=== PATIENT | female | born 1940 | race Native Hawaiian/Other Pacific Islander ===

== ENCOUNTER 2016-04-11 15:34 | Outpatient (CLI) | payer OTHER ==
[~2016-04-11 15:34] MED LIST: ACET7.5T70 PO; ALLEGRA ALRG180 M1 PO; AMLO10TA PO; ATEN50TA36 PO; BENA20TA2 PO; CIPR500T PO; ESTR0.9T PO; EZET10TA13 OR; GLIP2.5T3 PO; HYDR25TA60 PO; HYDRALAZINE25 MG PO; METF500T PO; NORGEST/ETH1 OR; PACERONE200 MG PO; POTASSIUM CHLO20 MEQ OR; SIMV40TA57; SIMV40TA57 PO; SITA50TA2 PO; XARELTO20 MG PO
== END 2016-04-11 19:11 | disposition home or self-care (01) ==
LOC: RESP 15:34
DX: R20.2 Paresthesia of skin (principal)
CPT/HCPCS: 95909

== ENCOUNTER 2016-06-14 11:33 | Emergency (ER) | payer OTHER ==
[~2016-06-14] VITALS: Ht 165.1 cm; Wt 73.5 kg
[2016-06-14 11:55] VITALS: TEMP 98.2
[2016-06-14 12:44] LABS: PLATELET COUNT 189 K/uL (152-353)
[2016-06-14 13:00] LABS: POTASSIUM 3.9 mmol/L (3.6-5.2)
[2016-06-14 14:25] VITALS: BP 162/72
== END 2016-06-14 14:25 | disposition home or self-care (01) ==
LOC: ED 11:33
DX: I10 Essential (primary) hypertension (principal); E11.9 Type 2 diabetes mellitus without complications
CPT/HCPCS: 36415; 80053; 81000; 83036; 85027; 99283

== ENCOUNTER 2016-06-21 14:45 | Outpatient (CLI) | payer OTHER ==
[2016-06-21 15:34] LABS: PLATELET COUNT 177 K/uL (152-353)
[2016-06-21 16:38] LABS: POTASSIUM 3.9 mmol/L (3.6-5.2)
== END 2016-06-21 19:11 | disposition home or self-care (01) ==
LOC: LAB 14:45
PROVIDERS: Nurse Practitioner Family
DX: I10 Essential (primary) hypertension (principal); E11.9 Type 2 diabetes mellitus without complications; E78.4 Other hyperlipidemia; I25.10 Atherosclerotic heart disease of native coronary artery without angina pectoris; I42.8 Other cardiomyopathies; Z79.899 Other long term (current) drug therapy; Z79.01 Long term (current) use of anticoagulants; Z51.81 Encounter for therapeutic drug level monitoring; I48.91 Unspecified atrial fibrillation; R79.89 Other specified abnormal findings of blood chemistry
CPT/HCPCS: 80053; 80061; 83036; 83880; 84439; 84443; 85027

== ENCOUNTER 2016-07-08 17:51 | Emergency (ER) | payer OTHER ==
[~2016-07-08] VITALS: Ht 165.1 cm; Wt 74.4 kg
[2016-07-08 18:00] VITALS: TEMP 97.8
[2016-07-08] MEDS ORDERED: ASPIRIN81 M2 OR (18:07)
[2016-07-08] MEDS ORDERED: GABA300C2 PO (18:08)
[2016-07-08] MEDS ORDERED: CLON0.1T16 PO (18:09)
[2016-07-08 18:32] VITALS: BP 139/70
== END 2016-07-08 18:38 | disposition home or self-care (01) ==
LOC: ED 17:51
DX: I10 Essential (primary) hypertension (principal); F41.8 Other specified anxiety disorders
CPT/HCPCS: 99281

== ENCOUNTER 2016-10-18 10:45 | Outpatient (CLI) | payer OTHER ==
[~2016-10-18 10:45] MED LIST changes: +ASPIRIN81 M2 OR; +CLON0.1T16 PO; +GABA300C2 PO
== END 2016-10-18 12:00 | disposition home or self-care (01) ==
LOC: MAMMO 10:45
DX: Z12.31 Encounter for screening mammogram for malignant neoplasm of breast (principal)
CPT/HCPCS: G0202-TC

== ENCOUNTER 2017-03-12 13:33 | Outpatient (CLI) | payer OTHER ==
[2017-03-12 13:59] LABS: PLATELET COUNT 242 K/uL (152-353)
[2017-03-12 14:17] LABS: POTASSIUM 3.3 mmol/L (3.6-5.2)
== END 2017-03-12 19:03 | disposition home or self-care (01) ==
LOC: LAB 13:33
PROVIDERS: Nurse Practitioner Family
DX: I10 Essential (primary) hypertension (principal); E11.9 Type 2 diabetes mellitus without complications; E78.4 Other hyperlipidemia; I25.10 Atherosclerotic heart disease of native coronary artery without angina pectoris; Z79.899 Other long term (current) drug therapy; Z51.81 Encounter for therapeutic drug level monitoring; I48.91 Unspecified atrial fibrillation
CPT/HCPCS: 80053; 80061; 83036; 84436; 84443; 85027

== ENCOUNTER 2017-04-25 08:14 | Emergency (ER) | payer OTHER ==
[~2017-04-25] VITALS: Ht 165.1 cm; Wt 71.2 kg
[2017-04-25 08:25] VITALS: TEMP 98.3
[2017-04-25 09:35] LABS: PLATELET COUNT 191 K/uL (152-353)
[2017-04-25 09:55] LABS: POTASSIUM 3.3 mmol/L (3.6-5.2); SODIUM 136 mmol/L (136-145)
[2017-04-25 11:05] VITALS: BP 137/66
== END 2017-04-25 11:05 | disposition home or self-care (01) ==
LOC: ED 08:14
PROVIDERS: Family Medicine
DX: I16.0 Hypertensive urgency (principal); E11.65 Type 2 diabetes mellitus with hyperglycemia; E87.6 Hypokalemia; R00.1 Bradycardia, unspecified; I45.81 Long QT syndrome
CPT/HCPCS: 36415; 80053; 84484; 85027; 93005; 99283

== ENCOUNTER 2017-08-29 07:18 | Outpatient (CLI) | payer OTHER ==
[2017-08-29 07:43] LABS: POTASSIUM 3.5 mmol/L (3.6-5.2)
== END 2017-08-29 23:08 | disposition home or self-care (01) ==
LOC: LABW 07:18
PROVIDERS: Internal Medicine Cardiovascular Disease
DX: R06.09 Other forms of dyspnea (principal)
CPT/HCPCS: 36415; 80048; 83880

== ENCOUNTER 2017-09-03 14:06 | Outpatient (CLI) | payer OTHER ==
[~2017-09-03 14:06] MED LIST changes: -ASPIRIN81 M2 OR; +ASPIRIN81 M2 PO
== END 2017-09-03 14:10 | disposition short-term general hospital (02) ==
LOC: AMB 14:06
DX: R51 Headache (principal)
CPT/HCPCS: A0425; A0429

== ENCOUNTER 2017-09-03 14:27 | Emergency (ER) | payer OTHER ==
[~2017-09-03] VITALS: Ht 152.4 cm; Wt 71.2 kg
[~2017-09-03 14:27] MED LIST changes: +ASPIRIN81 M2 OR; -ASPIRIN81 M2 PO
[2017-09-03 17:37] VITALS: BP 161/64; TEMP 98
== END 2017-09-03 17:40 | disposition home or self-care (01) ==
LOC: ED 14:27
DX: S00.83XA Contusion of other part of head, initial encounter (principal); W18.39XA Other fall on same level, initial encounter; Y93.89 Activity, other specified; Y92.89 Other specified places as the place of occurrence of the external cause; Y99.8 Other external cause status; S60.512A Abrasion of left hand, initial encounter; S60.511A Abrasion of right hand, initial encounter; R51 Headache
CPT/HCPCS: 99283

== ENCOUNTER 2017-09-06 17:15 | Outpatient (CLI) | payer OTHER ==
[~2017-09-06 17:15] MED LIST changes: -ASPIRIN81 M2 OR; +ASPIRIN81 M2 PO
[2017-09-06] MEDS ORDERED: HYDROCHLOROT50 MG PO (17:51)
[2017-09-06] MEDS ORDERED: LIPITOR10 MG PO (17:52)
[2017-09-06] MEDS ORDERED: ALAVERT10 M2 PO (18:01)
[2017-09-06] MEDS ORDERED: MONTELUKAST SOD10 MG PO (18:02)
[2017-09-06] MEDS ORDERED: MECLIZINE25 MG PO (18:03)
[2017-09-06] MEDS ORDERED: LORA0.5T17 PO (18:05)
[2017-09-06] MEDS ORDERED: JANUVIA100 MG PO (18:07)
[2017-09-06] MEDS ORDERED: EZET10TA13 PO (22:28)
== END 2017-09-06 17:19 | disposition short-term general hospital (02) ==
LOC: AMB 17:15
DX: M25.561 Pain in right knee (principal); R26.2 Difficulty in walking, not elsewhere classified; M62.81 Muscle weakness (generalized)
CPT/HCPCS: A0425; A0427

== ENCOUNTER 2017-09-06 17:20 | Inpatient (IN) | payer OTHER ==
[~2017-09-06] VITALS: Ht 162.6 cm; Wt 70.0 kg
[2017-09-06 17:23] VITALS: BP 150/51; TEMP 98.1
[2017-09-06] MEDS ORDERED: HYDROCHLOROT50 MG PO (17:51)
[2017-09-06] MEDS ORDERED: LIPITOR10 MG PO (17:52)
[2017-09-06 17:59] LABS: PLATELET COUNT 103 K/uL (152-353)
[2017-09-06] MEDS ORDERED: ALAVERT10 M2 PO (18:01)
[2017-09-06] MEDS ORDERED: MONTELUKAST SOD10 MG PO (18:02)
[2017-09-06] MEDS ORDERED: MECLIZINE25 MG PO (18:03)
[2017-09-06] MEDS ORDERED: LORA0.5T17 PO (18:05)
[2017-09-06] MEDS ORDERED: JANUVIA100 MG PO (18:07)
[2017-09-06 18:40] LABS: POTASSIUM 3.4 mmol/L (3.6-5.2)
[2017-09-06] MEDS ORDERED: EZET10TA13 PO (22:28)
[2017-09-06 23:17] VITALS: BP 145/90; TEMP 97.5; Ht 162.6 cm; Wt 70.0 kg
[2017-09-07] VITALS: BP 138/56; TEMP 97.9
[2017-09-07 04:00] VITALS: BP 136/45; TEMP 98.6
[2017-09-07 08:00] VITALS: BP 148/56; TEMP 98.2
[2017-09-07 12:00] VITALS: BP 131/58; TEMP 98.6
[2017-09-07 16:00] VITALS: BP 149/55; TEMP 98.5
[2017-09-07 20:00] VITALS: BP 152/65; TEMP 99
[2017-09-08] VITALS (7 sets, daily range): BP systolic 161–198; BP diastolic 61–86; TEMP 98.2–98.8
[2017-09-08 05:38] LABS: PLATELET COUNT 194 K/uL (152-353)
[2017-09-08 05:53] LABS: POTASSIUM 3.2 mmol/L (3.6-5.2)
[2017-09-09 04:00] VITALS: BP 172/80; TEMP 98.3
[2017-09-09 08:00] VITALS: BP 176/90; TEMP 99
[2017-09-09 08:17] LABS: PLATELET COUNT 235 K/uL (152-353)
[2017-09-09 08:49] LABS: POTASSIUM 3.3 mmol/L (3.6-5.2)
[2017-09-09 12:00] VITALS: BP 174/84; TEMP 99
== END 2017-09-09 14:00 | disposition home or self-care (01) | DRG 605 ==
LOC: ED 17:20 → MED/SURG 20:00
PROVIDERS: Emergency Medicine
DX: S00.83XA Contusion of other part of head, initial encounter (principal); E87.1 Hypo-osmolality and hyponatremia; W19.XXXA Unspecified fall, initial encounter; Z91.81 History of falling; Y93.89 Activity, other specified; Y92.89 Other specified places as the place of occurrence of the external cause; I48.91 Unspecified atrial fibrillation; I10 Essential (primary) hypertension; R00.1 Bradycardia, unspecified; S05.12XA Contusion of eyeball and orbital tissues, left eye, initial encounter; M25.552 Pain in left hip; M25.561 Pain in right knee
CPT/HCPCS: 36415; 51702; 80053; 81000; 82948; 84484; 85027; 93005; 96365; 96366; 96372; 96375; 99283; J1650; J1885; J3411; J3490

== ENCOUNTER 2017-11-04 13:30 | Outpatient (CLI) | payer OTHER ==
[~2017-11-04 13:30] MED LIST changes: +ALAVERT10 M2 PO; +EZET10TA13 PO; +HYDROCHLOROT50 MG PO; +JANUVIA100 MG PO; +LIPITOR10 MG PO; +LORA0.5T17 PO; +MECLIZINE25 MG PO; +MONTELUKAST SOD10 MG PO
== END 2017-11-04 22:07 | disposition home or self-care (01) ==
LOC: MAMMO 13:30
DX: Z12.31 Encounter for screening mammogram for malignant neoplasm of breast (principal)

== ENCOUNTER 2018-06-15 08:39 | Outpatient (CLI) | payer OTHER | END 2018-06-15 23:26 | disposition home or self-care (01) | LOC: CT 08:39 | DX: S00.83XS Contusion of other part of head, sequela (principal); R51 Headache ==

== ENCOUNTER 2018-10-23 09:42 | Emergency (ER) | payer OTHER ==
[~2018-10-23] VITALS: Ht 165.1 cm; Wt 68.5 kg
[2018-10-23 10:01] VITALS: TEMP 98.1
[2018-10-23 11:03] LABS: PLATELET COUNT 191 K/uL (152-353)
[2018-10-23 11:12] LABS: POTASSIUM 3.5 mmol/L (3.6-5.2)
[2018-10-23 14:13] VITALS: BP 116/82
== END 2018-10-23 14:13 | disposition home or self-care (01) ==
LOC: ED 09:42
PROVIDERS: Family Medicine
DX: M51.36 Other intervertebral disc degeneration, lumbar region (principal); D72.828 Other elevated white blood cell count
CPT/HCPCS: 80053; 81000; 85027; 99283

== ENCOUNTER 2018-11-04 16:59 | Observation (INO) | payer OTHER ==
[~2018-11-04] VITALS: Ht 165.1 cm; Wt 69.1 kg
[2018-11-04] VITALS (9 sets, daily range): BP systolic 115–172; BP diastolic 52–82; TEMP 97.7–98.6; Ht 165.1 cm; Wt 69.1 kg
[2018-11-04 17:32] LABS: PLATELET COUNT 356 K/uL (152-353)
[2018-11-04 17:43] LABS: POTASSIUM 3.6 mmol/L (3.6-5.2); SODIUM 135 mmol/L (136-145)
--- NOTE | 2018-11-04 23:41 | NUR ---
11/04/18 2222: RECEIVED PT FROM ER BY WHEELCHAIR TO ROOM 1108. PT ALERT, ORIENTED X4 DENIES PAIN AT THIS TIME. NO VOMITING NOTED AT THIS TIME. PT REQUESTING SOMETHING TO EAT. STATED SHE HADN'T EATEN ALL DAY. ORIENTED TO THE ENVIRONMENT.
[2018-11-05 03:56] VITALS: BP 173/63; TEMP 98.2
[2018-11-05 08:00] VITALS: BP 186/80; TEMP 98.6
[2018-11-05 08:14] LABS: PLATELET COUNT 297 K/uL (152-353)
== END 2018-11-05 10:05 | disposition home or self-care (01) ==
LOC: ED 16:59 → MED/SURG 20:35
PROVIDERS: Family Medicine; ADMIT Emergency Medicine
DX: A08.39 Other viral enteritis (principal); R11.2 Nausea with vomiting, unspecified; D72.828 Other elevated white blood cell count; R10.84 Generalized abdominal pain; E86.0 Dehydration; I48.91 Unspecified atrial fibrillation; I10 Essential (primary) hypertension; E11.9 Type 2 diabetes mellitus without complications
CPT/HCPCS: 80053; 81000; 82550; 82553; 83605; 84443; 84484; 85027; 93005; 96374; 99220; 99284; G0378; J0696; J2550; Q9963

== ENCOUNTER 2018-11-24 12:49 | Outpatient (CLI) | payer OTHER | END 2018-11-24 20:18 | disposition home or self-care (01) | LOC: MRI 12:49 | DX: M54.16 Radiculopathy, lumbar region (principal) ==

== ENCOUNTER 2018-12-11 12:35 | Outpatient (CLI) | payer OTHER | END 2018-12-11 22:26 | disposition home or self-care (01) | LOC: MAMMO 12:35 | DX: Z12.31 Encounter for screening mammogram for malignant neoplasm of breast (principal) ==

== ENCOUNTER 2019-04-22 08:20 | Outpatient (CLI) | payer OTHER | END 2019-04-22 19:39 | disposition home or self-care (01) | LOC: LABW 08:20 | DX: R06.09 Other forms of dyspnea (principal); Z79.899 Other long term (current) drug therapy | CPT/HCPCS: 36415; 83880 ==

== ENCOUNTER 2019-10-27 12:04 | Outpatient (CLI) | payer OTHER ==
[2019-10-27 12:29] LABS: POTASSIUM 3.8 mmol/L (3.6-5.2)
== END 2019-10-27 20:32 | disposition home or self-care (01) ==
LOC: LABW 12:04
PROVIDERS: Internal Medicine Cardiovascular Disease
DX: R60.0 Localized edema (principal); Z79.899 Other long term (current) drug therapy; R06.02 Shortness of breath
CPT/HCPCS: 36415; 80048; 83880

== ENCOUNTER 2019-12-12 19:01 | Observation (INO) | payer OTHER ==
[~2019-12-12] VITALS: Ht 165.1 cm; Wt 72.1 kg
[2019-12-12 19:23] VITALS: BP 203/85; TEMP 98.2
[2019-12-12 19:46] VITALS: BP 195/91
[2019-12-12 20:00] VITALS: BP 170/81
[2019-12-12] MEDS ORDERED: HYDROCHLOROT50 MG PO (20:02)
[2019-12-12] MEDS ORDERED: ATEN25TA21 PO (20:02)
[2019-12-12] MEDS ORDERED: JANUVIA100 MG PO (20:03)
[2019-12-12] MEDS ORDERED: LIPITOR40 MG PO (20:03)
[2019-12-12] MEDS ORDERED: CIPRO500 MG PO (20:03)
[2019-12-12] MEDS ORDERED: CLONIDINE HYDR0.2 MG PO (20:04)
[2019-12-12] MEDS ORDERED: BENA20TA2 PO (20:04)
[2019-12-12] MEDS ORDERED: EZETIMIBE10 MG PO (20:04)
[2019-12-12] MEDS ORDERED: LORA0.5T17 PO (20:05)
[2019-12-12] MEDS ORDERED: AMIODARONE HYD200 MG PO (20:05)
[2019-12-12] MEDS ORDERED: METF500T PO (20:05)
[2019-12-12] MEDS ORDERED: GABA300C2 PO (20:06)
[2019-12-12 20:16] VITALS: BP 192/81
[2019-12-12 20:30] VITALS: BP 177/87
[2019-12-12 20:34] LABS: PLATELET COUNT 204 K/uL (152-353)
[2019-12-12 21:01] LABS: POTASSIUM 2.9 mmol/L (3.6-5.2)
[2019-12-13 00:48] VITALS: BP 226/93; TEMP 97.6; Ht 165.1 cm; Wt 72.1 kg
[2019-12-13 03:30] VITALS: BP 184/75; TEMP 98
[2019-12-13 05:03] LABS: PLATELET COUNT 164 K/uL (152-353)
[2019-12-13 05:42] LABS: POTASSIUM 3.2 mmol/L (3.6-5.2)
[2019-12-13 08:00] VITALS: BP 168/77; TEMP 98.1
[2019-12-13 12:00] VITALS: BP 179/73; TEMP 98.1
[2019-12-13 16:00] VITALS: BP 196/82; BP 85/56; TEMP 97.8; TEMP 98.2
[2019-12-13 20:00] VITALS: BP 193/73; TEMP 98.1
[2019-12-14 00:16] VITALS: BP 188/72; TEMP 98.1
[2019-12-14 04:14] VITALS: BP 152/58; TEMP 97.7
[2019-12-14 05:20] LABS: PLATELET COUNT 140 K/uL (152-353)
[2019-12-14 05:32] LABS: POTASSIUM 3.9 mmol/L (3.6-5.2)
[2019-12-14 08:00] VITALS: BP 162/70; TEMP 97.8
[2019-12-14 12:00] VITALS: BP 140/65; TEMP 98.2
[2019-12-14 16:00] VITALS: BP 132/68; TEMP 97.7
[2019-12-14 20:00] VITALS: BP 182/73; TEMP 98.3
[2019-12-15 00:12] VITALS: BP 185/84; TEMP 98.2
[2019-12-15 04:00] VITALS: BP 125/68; TEMP 98.2
[2019-12-15 05:31] LABS: POTASSIUM 3.9 mmol/L (3.6-5.2)
[2019-12-15 08:00] VITALS: BP 110/68; TEMP 98
[2019-12-15] MEDS ORDERED: MAGN400T4 PO (12:47)
[2019-12-15] MEDS ORDERED: SPIR50TA8 PO (12:48)
[2019-12-15] MEDS ORDERED: LEVAQUIN250 MG PO (12:49)
== END 2019-12-15 14:28 | disposition home or self-care (01) ==
LOC: ED 19:01 → MED/SURG 22:02
PROVIDERS: Emergency Medicine Emergency Medical Services; Internal Medicine; ADMIT Internal Medicine Endocrinology, Diabetes & Metabolism
DX: J18.8 Other pneumonia, unspecified organism (principal); R06.02 Shortness of breath; I11.0 Hypertensive heart disease with heart failure; I50.9 Heart failure, unspecified; I48.20 Chronic atrial fibrillation, unspecified; E11.42 Type 2 diabetes mellitus with diabetic polyneuropathy; E87.6 Hypokalemia; E83.42 Hypomagnesemia
CPT/HCPCS: 36415; 80048; 80053; 81000; 82948; 83735; 83880; 84443; 84484; 85027; 96365; 96367; 96375; 99220; 99284; G0378; J0360; J0696; J1956; J3490

== ENCOUNTER 2019-12-24 09:57 | Outpatient (CLI) | payer OTHER ==
[~2019-12-24 09:57] MED LIST changes: +AMIODARONE HYD200 MG PO; +ATEN25TA21 PO; +CIPRO500 MG PO; +CLONIDINE HYDR0.2 MG PO; +EZETIMIBE10 MG PO; +LEVAQUIN250 MG PO; +LIPITOR40 MG PO; +MAGN400T4 PO; +SPIR50TA8 PO
[2019-12-24 10:26] LABS: PLATELET COUNT 250 K/uL (152-353)
[2019-12-24 10:40] LABS: POTASSIUM 4.1 mmol/L (3.6-5.2)
== END 2019-12-24 19:00 | disposition home or self-care (01) ==
LOC: LAB 09:57
PROVIDERS: Nurse Practitioner
DX: I50.9 Heart failure, unspecified (principal); R60.1 Generalized edema; E87.6 Hypokalemia
CPT/HCPCS: 80053; 83735; 83880; 85027

== ENCOUNTER 2020-01-03 11:30 | Emergency (ER) | payer OTHER ==
[~2020-01-03] VITALS: Ht 165.1 cm; Wt 66.9 kg
[2020-01-03 11:30] VITALS: BP 204/86; TEMP 98.9
[2020-01-03 12:27] LABS: PLATELET COUNT 206 K/uL (152-353)
[2020-01-03 12:41] LABS: POTASSIUM 5.2 mmol/L (3.6-5.2); SODIUM 137 mmol/L (136-145)
[2020-01-03 19:25] VITALS: BP 140/90; TEMP 97.5; Ht 165.1 cm; Wt 66.9 kg
[2020-01-03 20:00] VITALS: BP 140/90; TEMP 96.7
[2020-01-04] VITALS: BP 183/67; TEMP 97.5
[2020-01-04 04:00] VITALS: BP 181/72; TEMP 97.6
[2020-01-04 05:48] LABS: POTASSIUM 4.8 mmol/L (3.6-5.2)
[2020-01-04 05:53] LABS: PLATELET COUNT 339 K/uL (152-353)
[2020-01-04 08:00] VITALS: BP 220/90; TEMP 97.7
[2020-01-04 12:00] VITALS: BP 163/60; TEMP 97.7
[2020-01-04 16:00] VITALS: BP 184/77; TEMP 97.8
[2020-01-04 20:00] VITALS: BP 182/79; TEMP 97.4
[2020-01-05 00:23] VITALS: BP 181/55; TEMP 97.6
[2020-01-05 04:00] VITALS: BP 185/66; TEMP 97.6
[2020-01-05 05:53] LABS: PLATELET COUNT 151 K/uL (152-353)
[2020-01-05 06:04] LABS: POTASSIUM 4.6 mmol/L (3.6-5.2)
[2020-01-05 08:00] VITALS: BP 196/83; TEMP 98
[2020-01-05 12:00] VITALS: BP 161/67; TEMP 97.9
[2020-01-05 16:00] VITALS: BP 190/76; TEMP 97.9
[2020-01-05 20:00] VITALS: BP 184/74; TEMP 97.6
[2020-01-06] VITALS (7 sets, daily range): BP systolic 109–198; BP diastolic 67–84; TEMP 97.4–98.8
[2020-01-06 05:14] LABS: PLATELET COUNT 147 K/uL (152-353)
[2020-01-06 05:29] LABS: POTASSIUM 4.2 mmol/L (3.6-5.2)
[2020-01-07] VITALS: BP 187/74; TEMP 98
[2020-01-07 04:00] VITALS: BP 145/82; TEMP 98
[2020-01-07 05:37] LABS: PLATELET COUNT 139 K/uL (152-353)
[2020-01-07 05:39] LABS: POTASSIUM 4.3 mmol/L (3.6-5.2)
[2020-01-07 12:00] VITALS: BP 143/56; TEMP 97.6
== END 2020-01-03 18:13 | disposition still patient (30) ==
LOC: ED 11:30 → MED/SURG 15:57 → ED 15:57 → MED/SURG 15:58
PROVIDERS: Emergency Medicine Emergency Medical Services; Internal Medicine; Internal Medicine Endocrinology, Diabetes & Metabolism
DX: J18.9 Pneumonia, unspecified organism (principal); R06.02 Shortness of breath; Z20.828 Contact with and (suspected) exposure to other viral communicable diseases
CPT/HCPCS: 36415; 80048; 80053; 81000; 83605; 83880; 84484; 85027; 87040; 87635; 93005; 96365; 96367; 96372; 99284; J0456; J0696; J1650; J1956; J3490; U0003

== ENCOUNTER 2020-01-07 14:00 | Inpatient (IN) | payer OTHER ==
[~2020-01-07] VITALS: Ht 165.1 cm; Wt 67.4 kg
[2020-01-07 17:27] VITALS: BP 114/63; TEMP 98.2; Ht 165.1 cm; Wt 67.4 kg
[2020-01-07 20:00] VITALS: BP 188/70; TEMP 97.6
[2020-01-08 08:00] VITALS: BP 214/82; TEMP 97.9
[2020-01-08 20:00] VITALS: BP 210/75; TEMP 98.4
[2020-01-09 20:03] VITALS: BP 137/80; TEMP 97.7
[2020-01-10 20:00] VITALS: BP 188/64; TEMP 98.9
[2020-01-11 08:00] VITALS: TEMP 98
[2020-01-11 20:00] VITALS: BP 188/69; TEMP 98.2
[2020-01-12 08:00] VITALS: BP 141/59; TEMP 97.7
[2020-01-12 16:00] VITALS: BP 131/53; TEMP 97.4
[2020-01-12 20:00] VITALS: BP 125/62; TEMP 98.4
[2020-01-13 08:00] VITALS: BP 167/59; TEMP 98.4
[2020-01-13 20:00] VITALS: BP 151/66; TEMP 97.8
[2020-01-14 08:00] VITALS: BP 161/66; TEMP 97.6
[2020-01-14 20:00] VITALS: BP 203/99; TEMP 98.2
[2020-01-14 22:40] VITALS: BP 199/77
[2020-01-15 08:00] VITALS: BP 207/90; TEMP 97.7
[2020-01-15 20:00] VITALS: BP 163/79; TEMP 98.3
[2020-01-16 08:00] VITALS: BP 166/71; TEMP 98.1
[2020-01-16 20:00] VITALS: BP 179/71; TEMP 97.9
[2020-01-17 08:00] VITALS: BP 192/91; TEMP 98
[2020-01-17 20:00] VITALS: BP 173/67; TEMP 98.1
[2020-01-18 20:00] VITALS: BP 172/63; TEMP 98.1
[2020-01-19 08:00] VITALS: BP 144/65; TEMP 98.4
[2020-01-19 20:00] VITALS: BP 133/55; TEMP 98.3
[2020-01-20 08:00] VITALS: BP 188/77; TEMP 98.1
[2020-01-20 20:00] VITALS: BP 155/63; TEMP 98.1
[2020-01-21 08:00] VITALS: BP 171/83; TEMP 97.7
[2020-01-21 20:00] VITALS: BP 161/68; TEMP 97.9
[2020-01-22 08:00] VITALS: BP 148/57; TEMP 98
[2020-01-22 16:00] VITALS: BP 117/54; TEMP 97.7
[2020-01-22 20:00] VITALS: BP 123/69; TEMP 97.8
[2020-01-24 20:00] VITALS: BP 127/62; TEMP 97.5
[2020-01-25 20:00] VITALS: BP 134/60; TEMP 97.3
[2020-01-26 19:41] VITALS: BP 123/60; TEMP 97.8
[2020-01-27] MEDS ORDERED: BLOOMIS59 PO ×3 (07:46→07:52)
[2020-01-27 08:00] VITALS: BP 115/68; TEMP 97.9
== END 2020-01-27 12:26 | DRG 947 ==
LOC: MED/SURG 14:00
PROVIDERS: ADMIT Internal Medicine Endocrinology, Diabetes & Metabolism; ATTEND Internal Medicine Endocrinology, Diabetes & Metabolism
DX: R53.1 Weakness (principal); J18.8 Other pneumonia, unspecified organism; I48.91 Unspecified atrial fibrillation; I10 Essential (primary) hypertension; Z91.81 History of falling; R26.89 Other abnormalities of gait and mobility; R62.7 Adult failure to thrive; E11.42 Type 2 diabetes mellitus with diabetic polyneuropathy
CPT/HCPCS: 80048; 85027; 87081; J0360; J0456; J0696; J1650; J3490

== ENCOUNTER 2020-01-27 08:15 | Inpatient (IN) | payer OTHER ==
[~2020-01-27 08:15] MED LIST changes: +BLOOMIS59 PO
[2020-01-28 06:56] LABS: PLATELET COUNT 215 K/uL (152-353)
[2020-01-28 07:54] LABS: POTASSIUM 4.6 mmol/L (3.6-5.2)
== END 2020-02-15 10:12 | disposition still patient (30) ==
LOC: PAVB 08:15
PROVIDERS: ADMIT Internal Medicine; ATTEND Internal Medicine
DX: J18.9 Pneumonia, unspecified organism (principal); R53.1 Weakness; R26.89 Other abnormalities of gait and mobility; R27.9 Unspecified lack of coordination; Z74.1 Need for assistance with personal care; M62.81 Muscle weakness (generalized)
CPT/HCPCS: 80053; 80061; 82306; 82607; 82728; 83036; 83540; 84443; 85027; 87081

== ENCOUNTER 2020-02-15 11:35 | Inpatient (IN) | payer OTHER | END 2020-03-17 09:06 | disposition still patient (30) | LOC: PAVB 11:35 | PROVIDERS: ADMIT Internal Medicine; ATTEND Internal Medicine ==

== ENCOUNTER 2020-02-17 16:25 | Outpatient (CLI) | payer OTHER | END 2020-02-17 19:09 | disposition home or self-care (01) | LOC: LAB 16:25 | PROVIDERS: ATTEND Internal Medicine | DX: M54.5 Low back pain (principal); R82.998 Other abnormal findings in urine | CPT/HCPCS: 81000 ==

== ENCOUNTER 2020-02-25 14:26 | Outpatient (CLI) | payer OTHER | END 2020-02-25 20:09 | disposition home or self-care (01) | LOC: RAD 14:26 | PROVIDERS: ATTEND Internal Medicine | DX: M19.90 Unspecified osteoarthritis, unspecified site (principal); N95.8 Other specified menopausal and perimenopausal disorders; Z12.31 Encounter for screening mammogram for malignant neoplasm of breast ==

== ENCOUNTER 2020-03-17 09:45 | Inpatient (IN) | payer OTHER | END 2020-04-17 14:42 | disposition still patient (30) | LOC: PAVB 09:45 | PROVIDERS: ADMIT Internal Medicine; ATTEND Internal Medicine ==

== ENCOUNTER 2020-04-17 14:53 | Inpatient (IN) | payer OTHER | END 2020-05-15 09:57 | disposition still patient (30) | LOC: PAVB 14:53 | PROVIDERS: ADMIT Internal Medicine; ATTEND Internal Medicine ==

== ENCOUNTER 2020-04-18 08:39 | Outpatient (CLI) | payer OTHER | END 2020-04-18 19:44 | disposition home or self-care (01) | LOC: LAB 08:39 | PROVIDERS: ATTEND Internal Medicine | DX: E11.9 Type 2 diabetes mellitus without complications (principal) | CPT/HCPCS: 83036 ==

== ENCOUNTER 2020-05-15 10:46 | Inpatient (IN) | payer OTHER | END 2020-06-15 10:17 | disposition still patient (30) | LOC: PAVB 10:46 | PROVIDERS: ADMIT Internal Medicine; ATTEND Internal Medicine ==

== ENCOUNTER 2020-05-31 14:56 | Outpatient (CLI) | payer OTHER | END 2020-05-31 22:22 | disposition home or self-care (01) | LOC: INF 14:56 | PROVIDERS: ATTEND Internal Medicine | DX: Z23 Encounter for immunization (principal) | CPT/HCPCS: 96372 ==

== ENCOUNTER 2020-06-15 10:22 | Inpatient (IN) | payer OTHER | END 2020-07-15 11:56 | disposition still patient (30) | LOC: PAVB 10:22 → PAVA 06-28 08:05 | PROVIDERS: ADMIT Internal Medicine; ATTEND Internal Medicine ==

== ENCOUNTER 2020-06-22 09:17 | Outpatient (CLI) | payer OTHER | END 2020-06-22 22:15 | disposition home or self-care (01) | LOC: INF | PROVIDERS: ATTEND Internal Medicine | DX: Z23 Encounter for immunization (principal) | CPT/HCPCS: 96372 ==

== ENCOUNTER 2020-07-15 12:05 | Inpatient (IN) | payer OTHER | END 2020-08-15 13:08 | disposition still patient (30) | LOC: PAVA 12:05 | PROVIDERS: ADMIT Internal Medicine; ATTEND Internal Medicine ==

== ENCOUNTER 2020-07-17 09:20 | Outpatient (CLI) | payer OTHER ==
[2020-07-17 10:44] LABS: PLATELET COUNT 160 K/uL (152-353)
[2020-07-17 11:06] LABS: POTASSIUM 4.9 mmol/L (3.6-5.2)
== END 2020-07-17 19:15 | disposition home or self-care (01) ==
LOC: LAB 09:20
PROVIDERS: ATTEND Internal Medicine
DX: E78.49 Other hyperlipidemia (principal); E11.9 Type 2 diabetes mellitus without complications
CPT/HCPCS: 80053; 80061; 82306; 83036; 85027

== ENCOUNTER 2020-08-15 14:16 | Inpatient (IN) | payer OTHER | END 2020-09-14 08:00 | disposition still patient (30) | LOC: PAVA 14:16 | PROVIDERS: ADMIT Internal Medicine; ATTEND Internal Medicine ==

== ENCOUNTER 2020-09-14 09:00 | Inpatient (IN) | payer OTHER | END 2020-10-15 08:00 | disposition still patient (30) | LOC: PAVA 09:00 | PROVIDERS: ADMIT Internal Medicine; ATTEND Internal Medicine ==

== ENCOUNTER 2020-10-15 09:00 | Inpatient (IN) | payer OTHER | END 2020-11-15 09:07 | disposition still patient (30) | LOC: PAVA 09:00 | PROVIDERS: ADMIT Internal Medicine; ATTEND Internal Medicine ==

== ENCOUNTER 2020-10-17 07:49 | Outpatient (CLI) | payer OTHER | END 2020-10-17 19:16 | disposition home or self-care (01) | LOC: LAB 07:49 | PROVIDERS: ATTEND Internal Medicine | DX: E11.9 Type 2 diabetes mellitus without complications (principal) | CPT/HCPCS: 83036 ==

== ENCOUNTER 2020-11-15 09:22 | Inpatient (IN) | payer OTHER | END 2020-12-15 08:10 | disposition still patient (30) | LOC: PAVA 09:22 | PROVIDERS: ADMIT Internal Medicine; ATTEND Internal Medicine ==

== ENCOUNTER 2021-01-15 07:23 | Outpatient (CLI) | payer OTHER ==
[2021-01-15 08:30] LABS: PLATELET COUNT 122 K/uL (152-353)
[2021-01-15 08:46] LABS: POTASSIUM 5.3 mmol/L (3.6-5.2)
== END 2021-01-15 19:16 | disposition home or self-care (01) ==
LOC: LAB 07:23
PROVIDERS: ATTEND Internal Medicine
DX: E11.9 Type 2 diabetes mellitus without complications (principal)
CPT/HCPCS: 80053; 80061; 82306; 83036; 85027

== ENCOUNTER 2021-02-04 09:57 | Outpatient (CLI) | payer OTHER | END 2021-02-04 18:59 | disposition home or self-care (01) | LOC: LAB 09:57 | PROVIDERS: ATTEND Internal Medicine | DX: R31.9 Hematuria, unspecified (principal) | CPT/HCPCS: 81000 ==

== ENCOUNTER 2021-02-14 08:58 | Inpatient (IN) | payer OTHER | END 2021-03-17 07:56 | disposition still patient (30) | LOC: PAVA 08:58 | PROVIDERS: ADMIT Internal Medicine; ATTEND Internal Medicine ==

== ENCOUNTER 2021-03-01 09:50 | Outpatient (CLI) | payer OTHER | END 2021-03-01 19:23 | disposition home or self-care (01) | LOC: MAMMO 09:50 | PROVIDERS: ATTEND Internal Medicine | DX: Z12.31 Encounter for screening mammogram for malignant neoplasm of breast (principal) ==

== ENCOUNTER 2021-03-17 08:09 | Inpatient (IN) | payer OTHER | END 2021-04-17 08:43 | disposition still patient (30) | LOC: PAVA 08:09 | PROVIDERS: ADMIT Internal Medicine; ATTEND Internal Medicine ==

== ENCOUNTER 2021-04-17 06:58 | Outpatient (CLI) | payer OTHER | END 2021-04-17 19:20 | disposition home or self-care (01) | LOC: LAB 06:58 | PROVIDERS: ATTEND Internal Medicine | DX: E11.9 Type 2 diabetes mellitus without complications (principal) | CPT/HCPCS: 83036 ==

== ENCOUNTER 2021-04-17 10:42 | Inpatient (IN) | payer OTHER | END 2021-05-15 08:53 | disposition still patient (30) | LOC: PAVA 10:42 | PROVIDERS: ADMIT Internal Medicine; ATTEND Internal Medicine ==

== ENCOUNTER 2021-05-15 10:51 | Inpatient (IN) | payer OTHER | END 2021-06-15 08:09 | disposition still patient (30) | LOC: PAVA 10:51 | PROVIDERS: ADMIT Internal Medicine; ATTEND Internal Medicine ==

== ENCOUNTER 2021-06-05 08:28 | Outpatient (CLI) | payer OTHER | END 2021-06-05 18:54 | disposition home or self-care (01) | LOC: US 08:28 | PROVIDERS: ATTEND Internal Medicine | DX: R10.11 Right upper quadrant pain (principal) ==

== ENCOUNTER 2021-06-15 08:28 | Inpatient (IN) | payer OTHER | END 2021-07-15 10:49 | disposition still patient (30) | LOC: PAVA 08:28 | PROVIDERS: ADMIT Internal Medicine; ATTEND Internal Medicine ==

== ENCOUNTER 2021-07-15 03:36 | Inpatient (IN) | payer OTHER | END 2021-08-15 09:24 | disposition still patient (30) | LOC: PAVA 03:36 | PROVIDERS: ADMIT Internal Medicine; ATTEND Internal Medicine ==

== ENCOUNTER 2021-07-16 07:17 | Outpatient (CLI) | payer OTHER ==
[2021-07-16 08:44] LABS: PLATELET COUNT 125 K/uL (152-353)
[2021-07-16 08:59] LABS: POTASSIUM 5.8 mmol/L (3.6-5.2)
== END 2021-07-16 18:51 | disposition home or self-care (01) ==
LOC: LAB 07:17
PROVIDERS: ATTEND Internal Medicine
DX: E11.9 Type 2 diabetes mellitus without complications (principal); I10 Essential (primary) hypertension
CPT/HCPCS: 80053; 80061; 82306; 83036; 85027

== ENCOUNTER 2021-08-03 11:43 | Outpatient (CLI) | payer OTHER | END 2021-08-03 18:58 | disposition home or self-care (01) | LOC: RESP 11:43 | PROVIDERS: ATTEND Internal Medicine | DX: I50.9 Heart failure, unspecified (principal) ==

== ENCOUNTER 2021-08-09 06:34 | Outpatient (CLI) | payer OTHER ==
[2021-08-09 08:18] LABS: POTASSIUM 4.7 mmol/L (3.6-5.2)
== END 2021-08-09 19:19 | disposition home or self-care (01) ==
LOC: LAB 06:34
PROVIDERS: ATTEND Internal Medicine
DX: I10 Essential (primary) hypertension (principal)
CPT/HCPCS: 80048

== ENCOUNTER 2021-08-15 11:17 | Inpatient (IN) | payer OTHER | END 2021-09-14 09:00 | disposition still patient (30) | LOC: PAVA 11:17 | PROVIDERS: ADMIT Internal Medicine; ATTEND Internal Medicine ==

== ENCOUNTER 2021-08-31 11:45 | Outpatient (CLI) | payer OTHER | END 2021-08-31 21:11 | disposition home or self-care (01) | LOC: LAB 11:45 | PROVIDERS: ATTEND Internal Medicine | DX: R30.9 Painful micturition, unspecified (principal) | CPT/HCPCS: 81000; 87077; 87086; 87088; 87186 ==

== ENCOUNTER 2021-09-14 10:28 | Inpatient (IN) | payer OTHER | END 2021-10-15 09:23 | disposition still patient (30) | LOC: PAVA 10:28 | PROVIDERS: ADMIT Internal Medicine; ATTEND Internal Medicine ==

== ENCOUNTER 2021-09-27 22:45 | Emergency (ER) | payer OTHER ==
[~2021-09-27] VITALS: Ht 165.1 cm; Wt 73.9 kg
[2021-09-28 00:01] LABS: POTASSIUM 3.9 mmol/L (3.6-5.2)
[2021-09-28 00:10] LABS: PLATELET COUNT 227 K/uL (152-353)
[2021-09-28 00:16] LABS: PARTIAL THROMBOPLASTIN TIME 24.7 SECONDS (24.5-33.6)
[2021-09-28 05:00] VITALS: BP 158/75; TEMP 97.9
== END 2021-09-28 05:00 | disposition short-term general hospital (02) ==
LOC: ED 22:45
PROVIDERS: Emergency Medicine
DX: I21.4 Non-ST elevation (NSTEMI) myocardial infarction (principal); I16.1 Hypertensive emergency; J18.9 Pneumonia, unspecified organism; Z11.52 Encounter for screening for COVID-19; I67.82 Cerebral ischemia
CPT/HCPCS: 36415; 80053; 81002; 81015; 84484; 85027; 85610; 85730; 87040; 87635; 93005; 96365; 96366; 96372; 96375; 96376; 99285; J0360; J1650; J1956; J2405; J3490; U0003

== ENCOUNTER → 2021-09-27 | Outpatient (CLI) | payer OTHER ==
[2021-09-27 20:06] LABS: POTASSIUM 4.1 mmol/L (3.6-5.2)
[2021-09-27 20:08] LABS: PLATELET COUNT 173 K/uL (152-353)
== END ==
LOC: LAB 19:52
PROVIDERS: ATTEND Internal Medicine
DX: I10 Essential (primary) hypertension (principal)
CPT/HCPCS: 36415; 80053; 85027

== ENCOUNTER 2021-11-09 09:50 | Outpatient (CLI) | payer OTHER | END 2021-11-09 21:02 | disposition home or self-care (01) | LOC: RAD 09:50 | PROVIDERS: ATTEND Internal Medicine | DX: G43.909 Migraine, unspecified, not intractable, without status migrainosus (principal) ==

== ENCOUNTER 2021-11-15 10:00 | Inpatient (IN) | payer OTHER | END 2021-12-15 10:18 | disposition still patient (30) | LOC: PAVA 10:00 | PROVIDERS: ADMIT Internal Medicine; ATTEND Internal Medicine ==

== ENCOUNTER 2021-12-10 06:39 | Outpatient (CLI) | payer OTHER ==
[2021-12-10 07:59] LABS: POTASSIUM 3.6 mmol/L (3.6-5.2)
== END 2021-12-10 19:59 | disposition home or self-care (01) ==
LOC: LAB 06:39
PROVIDERS: ATTEND Internal Medicine
DX: I10 Essential (primary) hypertension (principal); R48.8 Other symbolic dysfunctions; E78.49 Other hyperlipidemia
CPT/HCPCS: 80048; 83735

== ENCOUNTER 2021-12-15 12:00 | Inpatient (IN) | payer OTHER | END 2022-01-15 09:44 | disposition still patient (30) | LOC: PAVA 12:00 | PROVIDERS: ADMIT Internal Medicine; ATTEND Internal Medicine ==

== ENCOUNTER 2021-12-24 08:17 | Outpatient (CLI) | payer OTHER ==
[2021-12-24 09:12] LABS: POTASSIUM 3.6 mmol/L (3.6-5.2)
== END 2021-12-24 18:56 | disposition home or self-care (01) ==
LOC: LAB 08:17
PROVIDERS: ATTEND Internal Medicine
DX: I10 Essential (primary) hypertension (principal)
CPT/HCPCS: 36415; 80048; 83735

== ENCOUNTER 2022-01-11 11:19 | Outpatient (CLI) | payer OTHER | END 2022-01-11 19:31 | disposition home or self-care (01) | LOC: RAD 11:19 | PROVIDERS: ATTEND Internal Medicine | DX: J18.9 Pneumonia, unspecified organism (principal) ==

== ENCOUNTER → 2022-01-15 | Outpatient (CLI) | payer OTHER ==
[2022-01-15 11:51] LABS: PLATELET COUNT 123 K/uL (152-353)
[2022-01-15 12:06] LABS: POTASSIUM 3.8 mmol/L (3.6-5.2)
== END ==
LOC: LAB 11:25
PROVIDERS: ATTEND Internal Medicine
DX: E11.9 Type 2 diabetes mellitus without complications (principal); E78.49 Other hyperlipidemia; I10 Essential (primary) hypertension; E55.9 Vitamin D deficiency, unspecified
CPT/HCPCS: 80053; 80061; 82306; 83036; 85027

== ENCOUNTER 2022-01-18 10:40 | Outpatient (CLI) | payer OTHER | END 2022-01-18 19:05 | disposition home or self-care (01) | LOC: LAB 10:40 | PROVIDERS: ATTEND Internal Medicine | DX: D64.89 Other specified anemias (principal) | CPT/HCPCS: 82272 ==

== ENCOUNTER 2022-01-21 02:52 | Emergency (ER) | payer OTHER ==
[~2022-01-21] VITALS: Ht 165.1 cm; Wt 69.4 kg
[2022-01-21 03:34] LABS: PLATELET COUNT 177 K/uL (152-353)
[2022-01-21 06:00] VITALS: BP 120/56; TEMP 98.5
== END 2022-01-21 06:00 | disposition short-term general hospital (02) ==
LOC: ED 02:52
PROVIDERS: Family Medicine
DX: J18.9 Pneumonia, unspecified organism (principal); J96.90 Respiratory failure, unspecified, unspecified whether with hypoxia or hypercapnia; Z11.52 Encounter for screening for COVID-19
CPT/HCPCS: 36415; 36600; 80053; 81002; 82805; 83605; 83880; 84484; 85027; 85379; 87040; 87502; 87635; 93005; 94660; 96365; 96372; 99285; J1644; J2543; U0003